=== PATIENT | female | born 1950 | race Caucasian/White ===

== ENCOUNTER 2020-12-13 17:01 | Observation (INO) | payer MEDICARE, OTHER ==
[~2020-12-13] VITALS: Ht 162.6 cm; Wt 70.9 kg
[2020-12-13] MEDS ORDERED: LISI20 PO (18:08)
[2020-12-13] MEDS ORDERED: DOXA2 PO (18:08)
[2020-12-13 18:55] LABS: BASOPHILS ABSOLUTE AUTO 0.02 K/mm3 (0.00-0.23); BASOPHILS PERCENT AUTO 0 % (0-2); EOSINOPHILS PERCENT AUTO 0 % (0-6); Hematocrit 41.7 % (33.0-51.0); Hemoglobin 14.2 g/dL (11.5-16.0); IMMATURE GRAN ABSOLUTE AUTO 0.03 K/mm3 (0.00-0.10); IMMATURE GRAN PERCENT AUTO 0 % (0-1); LYMPHOCYTES PERCENT AUTO 7 % (21-46); MONOCYTES ABSOLUTE AUTO 0.41 K/mm3 (0.16-1.47); MONOCYTES PERCENT AUTO 5 % (4-13); Mean Corpuscular HGB 31.4 pg (26.0-34.0); Mean Corpuscular HGB Conc 34.1 g/dL (31.5-36.5); Mean Corpuscular Volume 92 fL (80-100); Mean Platelet Volume 9.8 fL (9.1-12.4); NEUTROPHILS ABSOLUTE AUTO 8.02 K/mm3 (1.96-9.15); NEUTROPHILS PERCENT AUTO 88 % (41-73); Platelet Count 363 K/mm3 (150-400); RDW Coefficient Variation 12.6 % (11.7-14.2); RDW Standard Deviation 42.9 fL (35.1-46.3); Red Blood Cell Count 4.52 M/mm3 (3.80-5.20); White Blood Cell Count 9.08 K/mm3 (4.00-11.30)
[2020-12-13 19:14] LABS: Alanine Aminotransfer (ALT/SGP 18 U/L (12-78); Albumin, Blood 4.2 g/dL (3.4-5.0); Alk Phos 70 U/L (50-136); Anion Gap 8 mmol/L (6-16); Aspartate Aminotrans (AST/SGOT 23 U/L (12-37); Bilirubin, Total 0.4 mg/dL (0.1-1.0); Blood Urea Nitrogen 8 mg/dL (8-24); Bun/Creatinine Ratio 15.1 (12.0-20.0); CO2, Blood 27 mmol/L (21-32); Calcium, Blood 8.9 mg/dL (8.5-10.1); Chloride, Blood 93 mmol/L (98-108); Creatinine, Blood 0.53 mg/dL (0.40-1.00); Glomerular Filtration Rate >60 (60-); Glucose, Blood 120 mg/dL (70-99); Potassium, Blood 3.7 mmol/L (3.5-5.5); Sodium, Blood 128 mmol/L (136-145); Total Protein, Blood 8.2 g/dL (6.4-8.2)
[2020-12-13] MEDS ORDERED: ONDA4ODT MM (21:22)
--- NOTE | 2020-12-14 04:15 | NUR ---
SHIFT SUMMARY ASSUMED CARE OF PT AT 0200. PT IS A/OX4. PT IS VERY LETHARGIC AND COMPLAINS OF DIZZINESS. HEART SOUNDS SHOW A HEART MURMUR, TELE IS SINUS. LUNG SOUNDS ARE DIMINISHED T/O. PT ADM IS NONTENDER AND SOFT, TONES HYPERACTIVE. PT C/O DIARRHEA BUT HAS NOT HAD ANY THIS SHIFT. PT HAS BEEN SLEEPING SINCE COMING ONTO THE UNIT. PT REPORTED DRINKING EVERYDAY, BOUT 1-6 BEERS A DAY. PT ALSO REPORTS SMOKING 1/2 PACK A DAY. CALL LIGHT IN REACH, BED IN LOWEST POSTION.
--- NOTE | 2020-12-15 05:56 | NUR ---
SUMMARY: PT IS A/OX4 AND REMAINS VERY DROWSY BUT IS WAKEFUL AND SPECIFIES NEEDS. SHE'S 1PA TO BSC TO VOID AND HAD NO COMPLAINTS OF DIZZINESS TONIGHT. PT DENIED PAIN, NAUSEA AND ALL OTHER COMPLAINTS. NS INFUSES AT 100 ML/HR. STAFF WERE UNABLE TO COLLECT STOOL SPECIMEN D/T NO BM. ABDO IS SOFT AND NONTENDER W/(+)BT'S X4 QUADS. SHE REMAINS NSR AT 60'S BPM W/MURMUR AUSCULTATED. NO ACUTE CHANGES, VSS/AFEBRILE. WCTM AND REPORT TO DAY RN.
[2020-12-15 09:07] LABS: BASOPHILS ABSOLUTE AUTO 0.05 K/mm3 (0.00-0.23); BASOPHILS PERCENT AUTO 1 % (0-2); EOSINOPHILS ABSOLUTE AUTO 0.07 K/mm3 (0.00-0.68); EOSINOPHILS PERCENT AUTO 1 % (0-6); Hematocrit 40.4 % (33.0-51.0); Hemoglobin 13.5 g/dL (11.5-16.0); IMMATURE GRAN ABSOLUTE AUTO 0.01 K/mm3 (0.00-0.10); IMMATURE GRAN PERCENT AUTO 0 % (0-1); LYMPHOCYTES ABSOLUTE AUTO 1.16 K/mm3 (0.84-5.20); LYMPHOCYTES PERCENT AUTO 15 % (21-46); MONOCYTES ABSOLUTE AUTO 0.93 K/mm3 (0.16-1.47); MONOCYTES PERCENT AUTO 12 % (4-13); Mean Corpuscular HGB 31.6 pg (26.0-34.0); Mean Corpuscular HGB Conc 33.4 g/dL (31.5-36.5); Mean Corpuscular Volume 95 fL (80-100); Mean Platelet Volume 9.8 fL (9.1-12.4); NEUTROPHILS ABSOLUTE AUTO 5.48 K/mm3 (1.96-9.15); NEUTROPHILS PERCENT AUTO 71 % (41-73); Platelet Count 306 K/mm3 (150-400); RDW Coefficient Variation 12.7 % (11.7-14.2); RDW Standard Deviation 44.4 fL (35.1-46.3); Red Blood Cell Count 4.27 M/mm3 (3.80-5.20)
[2020-12-15 09:41] LABS: Alanine Aminotransfer (ALT/SGP 15 U/L (12-78); Albumin, Blood 3.4 g/dL (3.4-5.0); Albumin/Globulin Ratio 0.9 (0.8-1.8); Alk Phos 54 U/L (50-136); Anion Gap 2 mmol/L (6-16); Aspartate Aminotrans (AST/SGOT 19 U/L (12-37); Bilirubin, Total 0.5 mg/dL (0.1-1.0); Blood Urea Nitrogen 6 mg/dL (8-24); Bun/Creatinine Ratio 9.5 (12.0-20.0); CO2, Blood 30 mmol/L (21-32); Chloride, Blood 101 mmol/L (98-108); Creatinine, Blood 0.63 mg/dL (0.40-1.00); Globulin, Blood 3.6 g/dL (2.2-4.0); Glomerular Filtration Rate >60 (60-); Glucose, Blood 106 mg/dL (70-99); Magnesium, Blood 1.9 mg/dL (1.6-2.4); Potassium, Blood 3.3 mmol/L (3.5-5.5); Sodium, Blood 133 mmol/L (136-145)
--- NOTE | 2020-12-15 12:27 | NUR ---
CHEMICAL WASTE MANAGEMENT TECHNICIAN DOC REVIEW THIS RN ASSESSED THE PT. REVIEWED & AGREES WITH CHEMICAL WASTE MANAGEMENT TECHNICIAN'S DOCUMENTATION FOR THE SHIFT.
--- NOTE | 2020-12-15 12:59 | NUR ---
DISCHARGE PT DISCHARGED AFTER EDUCATION ON NEW MEDS AND FOLLOW UP INSTRUCTIONS. PT & SPOUSE DENY FUTHER NEED FOR INSTRUCTION AT THIS TIME. TELEPHONE ORDER FOR AMRIA L OBTAINED & CALLED TO NIRAJ IVANWIris. PT WHEELED OUT BY REMOTE SENSING TECHNOLOGIST AND DRIVEN HOME BY SPOUSE.
== END 2020-12-15 13:08 | disposition home or self-care (01) ==
LOC: ER 17:01 → MEDS 17:02
PROVIDERS: Emergency Medicine; Internal Medicine; ADMIT Internal Medicine
DX: R11.2 Nausea with vomiting, unspecified (principal); R42 Dizziness and giddiness; R55 Syncope and collapse; E87.1 Hypo-osmolality and hyponatremia; E86.1 Hypovolemia; R19.7 Diarrhea, unspecified; I10 Essential (primary) hypertension; F17.200 Nicotine dependence, unspecified, uncomplicated
CPT/HCPCS: 36415; 80053; 83690; 83735; 84145; 84443; 85025; 85651; 93005; 93010; 96360; 96372; 97162; 97165; 97530; 99285-25; A9270; G0378; J1650; J2405; J7030

== ENCOUNTER 2024-02-16 14:17 | Emergency (ER) | payer MEDICARE, OTHER ==
[~2024-02-16] VITALS: Ht 162.6 cm; Wt 72.6 kg
[~2024-02-16 14:17] MED LIST: DOXA2 PO; LISI20 PO; ONDA4ODT MM
[2024-02-16 14:38] LABS: BASOPHILS ABSOLUTE AUTO 0.04 K/mm3 (0.00-0.23); BASOPHILS PERCENT AUTO 1 % (0-2); EOSINOPHILS ABSOLUTE AUTO 0.17 K/mm3 (0.00-0.68); EOSINOPHILS PERCENT AUTO 2 % (0-6); Hematocrit 39.8 % (33.0-51.0); Hemoglobin 13.5 g/dL (11.5-16.0); IMMATURE GRAN ABSOLUTE AUTO 0.01 K/mm3 (0.00-0.10); IMMATURE GRAN PERCENT AUTO 0 % (0-1); LYMPHOCYTES ABSOLUTE AUTO 1.23 K/mm3 (0.84-5.20); LYMPHOCYTES PERCENT AUTO 17 % (21-46); MONOCYTES ABSOLUTE AUTO 1.05 K/mm3 (0.16-1.47); MONOCYTES PERCENT AUTO 15 % (4-13); Mean Corpuscular HGB 30.8 pg (26.0-34.0); Mean Corpuscular HGB Conc 33.9 g/dL (31.5-36.5); Mean Corpuscular Volume 91 fL (80-100); Mean Platelet Volume 9.8 fL (9.1-12.4); NEUTROPHILS ABSOLUTE AUTO 4.59 K/mm3 (1.96-9.15); NEUTROPHILS PERCENT AUTO 65 % (41-73); Platelet Count 316 K/mm3 (150-400); RDW Coefficient Variation 12.7 % (11.7-14.2); RDW Standard Deviation 42.1 fL (35.1-46.3); Red Blood Cell Count 4.38 M/mm3 (3.80-5.20); White Blood Cell Count 7.09 K/mm3 (4.00-11.30)
[2024-02-16 14:59] LABS: Albumin, Blood 3.6 g/dL (3.4-5.0); Bilirubin, Total 0.5 mg/dL (0.1-1.0); Bun/Creatinine Ratio 19.8 (12.0-20.0); Calcium, Blood 8.5 mg/dL (8.5-10.1); Creatinine, Blood 0.56 mg/dL (0.40-1.00); Globulin, Blood 3.7 g/dL (2.2-4.0); Potassium, Blood 4.3 mmol/L (3.5-5.5); Total Protein, Blood 7.3 g/dL (6.4-8.2)
[2024-02-16 17:05] VITALS: BP 171/100
== END 2024-02-16 17:06 | disposition home or self-care (01) ==
LOC: ER 14:17
PROVIDERS: Student in an Organized Health Care Education/Training Program
DX: G45.9 Transient cerebral ischemic attack, unspecified (principal); Z79.899 Other long term (current) drug therapy; I10 Essential (primary) hypertension; Z87.891 Personal history of nicotine dependence
CPT/HCPCS: 70450; 80053; 85025; 93005; 93010; 99284-25

== ENCOUNTER 2024-08-01 12:53 | Emergency (ER) | payer MEDICARE, OTHER ==
[~2024-08-01] VITALS: Ht 162.6 cm; Wt 72.6 kg
[2024-08-01 13:07] LABS: BASOPHILS ABSOLUTE AUTO 0.05 K/mm3 (0.00-0.23); BASOPHILS PERCENT AUTO 1 % (0-2); EOSINOPHILS ABSOLUTE AUTO 0.07 K/mm3 (0.00-0.68); EOSINOPHILS PERCENT AUTO 1 % (0-6); Hematocrit 39.3 % (33.0-51.0); Hemoglobin 13.6 g/dL (11.5-16.0); IMMATURE GRAN ABSOLUTE AUTO 0.03 K/mm3 (0.00-0.10); IMMATURE GRAN PERCENT AUTO 0 % (0-1); LYMPHOCYTES ABSOLUTE AUTO 1.18 K/mm3 (0.84-5.20); LYMPHOCYTES PERCENT AUTO 13 % (21-46); MONOCYTES ABSOLUTE AUTO 1.46 K/mm3 (0.16-1.47); MONOCYTES PERCENT AUTO 16 % (4-13); Mean Corpuscular HGB 31.2 pg (26.0-34.0); Mean Corpuscular HGB Conc 34.6 g/dL (31.5-36.5); Mean Corpuscular Volume 90 fL (80-100); Mean Platelet Volume 10.3 fL (9.1-12.4); NEUTROPHILS ABSOLUTE AUTO 6.18 K/mm3 (1.96-9.15); NEUTROPHILS PERCENT AUTO 69 % (41-73); Platelet Count 293 K/mm3 (150-400); RDW Coefficient Variation 13.2 % (11.7-14.2); RDW Standard Deviation 43.8 fL (35.1-46.3); Red Blood Cell Count 4.36 M/mm3 (3.80-5.20); White Blood Cell Count 8.97 K/mm3 (4.00-11.30)
[2024-08-01 13:46] LABS: Albumin, Blood 3.6 g/dL (3.4-5.0); Albumin/Globulin Ratio 0.9 (0.8-1.8); Bilirubin, Total 0.6 mg/dL (0.1-1.0); Calcium, Blood 9.3 mg/dL (8.5-10.1); Creatinine, Blood 0.67 mg/dL (0.40-1.00); Globulin, Blood 4.2 g/dL (2.2-4.0); Potassium, Blood 5.1 mmol/L (3.5-5.5); Total Protein, Blood 7.8 g/dL (6.4-8.2)
[2024-08-01] MEDS ORDERED: Cardura1 MG PO (15:55)
[2024-08-01 16:00] VITALS: BP 186/75
== END 2024-08-01 16:18 | disposition home or self-care (01) ==
LOC: ER 12:53
PROVIDERS: Emergency Medicine
DX: R40.4 Transient alteration of awareness (principal); R55 Syncope and collapse; I10 Essential (primary) hypertension; Z87.891 Personal history of nicotine dependence; Z86.73 Personal history of transient ischemic attack (TIA), and cerebral infarction without residual deficits
CPT/HCPCS: 70450; 71046; 80053; 82947; 83880; 84484; 85025; 93005; 93010; 99285-25

== ENCOUNTER 2024-10-02 07:42 | Emergency (ER) | payer MEDICARE, OTHER ==
[~2024-10-02] VITALS: Ht 162.6 cm; Wt 72.6 kg
[~2024-10-02 07:42] MED LIST changes: +Cardura1 MG PO
[2024-10-02] MEDS ORDERED: FentaNYL Citrate 50 MCG/ML 2 ML Injection IV ONE (07:50)
[2024-10-02] MEDS ORDERED: Ondansetron HCl 2 MG / ML 2ML Vial IV ONE (07:50)
[2024-10-02] MEDS ORDERED: DOC250 PO (09:50)
[2024-10-02] MEDS ORDERED: HYDR1TAB94 PO (09:50)
[2024-10-02] MEDS ORDERED: OxyCODONE 5 mg/Acetamin 325 mg TABLET PO ONE (09:55)
[2024-10-02 12:30] VITALS: BP 138/85
== END 2024-10-02 12:33 | disposition home or self-care (01) ==
LOC: ER 07:42
DX: S82.831A Other fracture of upper and lower end of right fibula, initial encounter for closed fracture (principal); S70.01XA Contusion of right hip, initial encounter; W06.XXXA Fall from bed, initial encounter; I10 Essential (primary) hypertension; Z79.899 Other long term (current) drug therapy; Z87.891 Personal history of nicotine dependence
CPT/HCPCS: 29515; 73502; 73610; 96374-59; 96375-59; 99284-25; A9270; J2405; J3010

== ENCOUNTER 2025-02-08 14:10 | Inpatient (IN) | payer MEDICARE, OTHER ==
[~2025-02-08] VITALS: Ht 162.6 cm; Wt 74.8 kg
[~2025-02-08 14:10] MED LIST changes: +DOC250 PO; +HYDR1TAB94 PO
[2025-02-08] MEDS ORDERED: NS 1,000 ML IV SCH ×2 (14:20→21:45)
[2025-02-08 14:27] LABS: BASOPHILS ABSOLUTE AUTO 0.04 K/mm3 (0.00-0.23); BASOPHILS PERCENT AUTO 0 % (0-2); EOSINOPHILS ABSOLUTE AUTO 0.06 K/mm3 (0.00-0.68); EOSINOPHILS PERCENT AUTO 0 % (0-6); Hematocrit 38.6 % (33.0-51.0); Hemoglobin 13.5 g/dL (11.5-16.0); IMMATURE GRAN ABSOLUTE AUTO 0.12 K/mm3 (0.00-0.10); IMMATURE GRAN PERCENT AUTO 1 % (0-1); LYMPHOCYTES ABSOLUTE AUTO 0.60 K/mm3 (0.84-5.20); LYMPHOCYTES PERCENT AUTO 3 % (21-46); MONOCYTES ABSOLUTE AUTO 2.53 K/mm3 (0.16-1.47); MONOCYTES PERCENT AUTO 14 % (4-13); Mean Corpuscular HGB Conc 35.0 g/dL (31.5-36.5); Mean Corpuscular Volume 85 fL (80-100); NEUTROPHILS ABSOLUTE AUTO 15.29 K/mm3 (1.96-9.15); NEUTROPHILS PERCENT AUTO 82 % (41-73); NRBC ABSOLUTE 0.00 K/mm3 (0.00-0.02); NRBC Auto 0.0 /100 WBC (0.0-0.2); Platelet Count 303 K/mm3 (150-400); RDW Coefficient Variation 13.1 % (11.7-14.2); RDW Standard Deviation 41.1 fL (35.1-46.3)
[2025-02-08 14:34] LABS: Source, Urine Fem Cath
[2025-02-08 14:37] LABS: Bilirubin, Urine Neg (Neg); Glucose Qualitative, Urine Neg (Neg); Ketones, Urine Neg (Neg); Leukocyte Esterase, Urine 3+ (Neg); Protein, Urine 2+ (Neg); Specific Gravity, Urine 1.010 (1.003-1.022); Urobilinogen, Urine NORM (Normal)
[2025-02-08 14:48] LABS: Alanine Aminotransfer (ALT/SGP 16.0 U/L (12-78); Albumin, Blood 3.1 g/dL (3.4-5.0); Albumin/Globulin Ratio 0.8 (0.8-1.8); Anion Gap 13.0 mmol/L (3-11); Aspartate Aminotrans (AST/SGOT 19.0 U/L (12-37); Bilirubin, Total 1.2 mg/dL (0.1-1.0); Blood Urea Nitrogen 6.0 mg/dL (8-24); CO2, Blood 24.0 mmol/L (21-32); Calcium, Blood 8.5 mg/dL (8.5-10.1); Chloride, Blood 87.0 mmol/L (98-108); Creatinine, Blood 0.6 mg/dL (0.40-1.00); Globulin, Blood 4.0 g/dL (2.2-4.0); Glucose, Blood 113.0 mg/dL (70-99); Potassium, Blood 3.5 mmol/L (3.5-5.5); Sodium, Blood 120.0 mmol/L (136-145); Total Protein, Blood 7.1 g/dL (6.4-8.2)
[2025-02-08 15:02] LABS: Color, Urine Pale Yellow (P-Yellow)
[2025-02-08] MEDS ORDERED: CefTRIAXone Sodium 2,000 MG in NS 100 ML IV ONE (15:25)
[2025-02-08] MEDS ORDERED: Ondansetron HCl 2 MG / ML 2ML Vial IV PRN (17:50)
[2025-02-08 20:29] VITALS: BP 149/87
[2025-02-09 01:16] LABS: Anion Gap 12.0 mmol/L (3-11); Blood Urea Nitrogen 7.0 mg/dL (8-24); CO2, Blood 23.0 mmol/L (21-32); Calcium, Blood 8.1 mg/dL (8.5-10.1); Chloride, Blood 96.0 mmol/L (98-108); Creatinine, Blood 0.6 mg/dL (0.40-1.00); Glucose, Blood 108.0 mg/dL (70-99); Potassium, Blood 3.5 mmol/L (3.5-5.5); Sodium, Blood 127.0 mmol/L (136-145)
--- NOTE | 2025-02-09 03:35 | NUR ---
SHIFT SUMM: PT WAS AN ADMIT THIS SHIFT FROM THE ER. PT HAS BEEN SLEEPING MOST OF THIS SHIFT. PT WAS GIVEN MELATONIN AND IBRUPROFEN FOR PAIN/SLEEP. PT IS INCONT/CONT AND A 1 PERSON W/FWW TO THE BSC. PT IS ON CONTINUOUS NS @ 75ML/HR. WITH A PATENT PIV TO THE LFA. PT ON RA. PT HAS CALL LIGHT IN REACH AND BED LOW AND LOCKED FOR SAFETY.
[2025-02-09 03:57] VITALS: BP 132/80
[2025-02-09 07:14] VITALS: BP 131/71
[2025-02-09] MEDS ORDERED: Enoxaparin 40 MG/0.4 ML SYR SC SCH (09:00)
[2025-02-09] MEDS ORDERED: CefTRIAXone Sodium 1,000 MG in NS 100 ML IV SCH (09:00)
[2025-02-09] MEDS ORDERED: Lactobacil 2-S.Thermo-Bifido 1 1 Cap PO SCH (12:00)
[2025-02-09] MEDS ORDERED: Polyethylene Glycol 3350 17 gm PO SCH (12:00)
[2025-02-09 14:58] VITALS: BP 138/79
--- NOTE | 2025-02-09 18:47 | NUR ---
NO ACUTE CHANGES, WAITING FOR CULUTRE RESULTS, IMPROVED/RESOLVED LEFT SIDE DEFICITS, WORKED WITH PT, NO SWALLOW DEFICITS, CALL LIGHT WITH IN REACH
[2025-02-09 20:14] VITALS: BP 178/86
[2025-02-09 20:18] VITALS: BP 182/81
[2025-02-09 23:14] VITALS: BP 123/65
[2025-02-10 03:23] VITALS: BP 183/77
[2025-02-10 05:50] LABS: Hematocrit 37.2 % (33.0-51.0); Hemoglobin 12.8 g/dL (11.5-16.0); Mean Corpuscular HGB Conc 34.4 g/dL (31.5-36.5); Mean Corpuscular Volume 86 fL (80-100); NRBC ABSOLUTE 0.00 K/mm3 (0.00-0.02); NRBC Auto 0.0 /100 WBC (0.0-0.2); Platelet Count 265 K/mm3 (150-400); RDW Coefficient Variation 13.3 % (11.7-14.2); RDW Standard Deviation 42.3 fL (35.1-46.3)
[2025-02-10 06:14] LABS: Anion Gap 10 mmol/L (3-11); Blood Urea Nitrogen 4 mg/dL (8-24); CHOL/HDL RATIO 3.6; CO2, Blood 26 mmol/L (21-32); Calcium, Blood 8.3 mg/dL (8.5-10.1); Chloride, Blood 97 mmol/L (98-108); Cholesterol 176 mg/dL (50-200); Creatinine, Blood 0.59 mg/dL (0.40-1.00); Glucose, Blood 95 mg/dL (70-99); HDL Cholesterol 49 mg/dL (>39); LDL/HDL RATIO 2.2; Low Density Lipoprotein Chol 107 mg/dL (0-110); Potassium, Blood 3.0 mmol/L (3.5-5.5); Sodium, Blood 130 mmol/L (136-145); Triglycerides 101 mg/dL (30-160); Very Low Density Lipoprot Chol 20 mg/dL (6-32)
[2025-02-10 06:25] VITALS: BP 141/88
--- NOTE | 2025-02-10 06:43 | NUR ---
SUMMARY ORIENTED. EMBRACING PILLOW WHOLE TIME FOR SPLINTING HER PAIN ON R FLANK THORAX. REQ FOR BATHROOM ASSISTANCE, SB ASSIST MANAGED WALKER FAIR. BP SUDDENLY ELEVATED AFTER AMBULATING, DID HAPPEN TWICE. CONTINUED IBUPROFEN AND ABLE TO SLEEP WELL. BP NORMALISED WHILE ON REST. NOT REQUESTING FOR PAIN MED BUT 01/30 WHEN ASKED.
[2025-02-10 07:18] VITALS: BP 160/78
[2025-02-10] MEDS ORDERED: AMOCLA875 PO (11:32)
[2025-02-10] MEDS ORDERED: ASPI81CH PO (11:32)
[2025-02-10] MEDS ORDERED: Acetaminophen325 M1 PO (11:32)
[2025-02-10] MEDS ORDERED: VISBIOME 112.51 EACH PO (11:33)
[2025-02-10] MEDS ORDERED: MELATONIN5 M1 PO (11:33)
[2025-02-10] MEDS ORDERED: MIRALAX17 GM PO (11:33)
--- NOTE | 2025-02-10 13:03 | NUR ---
DISCHARGE NOTE PT D/C HOME AT 1300. PT AND PT'S PROVIDED W/ VERBAL AND WRITTEN INSTRUCTIONS AND REPORTED UNDERSTANDING. PT A&OX4, VSS, AMB W/ ASSIST, TOLERATING PO, VOIDING, AND DENIED PAIN. BELONGINGS WERE RETURNED. PT ESCOURTED OUT VIA W/C BY PT'S .
== END 2025-02-10 13:00 | disposition home or self-care (01) | DRG 871 ==
LOC: ER 14:10 → MEDS 17:47 → ERHOLD 17:47 → MEDS 20:13
PROVIDERS: Emergency Medicine; Internal Medicine; Nurse Practitioner Acute Care; ADMIT Student in an Organized Health Care Education/Training Program
DX: A41.51 Sepsis due to Escherichia coli [E. coli] (principal); G92.8 Other toxic encephalopathy; G93.41 Metabolic encephalopathy; N39.0 Urinary tract infection, site not specified; E87.1 Hypo-osmolality and hyponatremia; R65.20 Severe sepsis without septic shock; E87.6 Hypokalemia; E78.5 Hyperlipidemia, unspecified; I10 Essential (primary) hypertension; Z66 Do not resuscitate; Z91.81 History of falling; Z86.73 Personal history of transient ischemic attack (TIA), and cerebral infarction without residual deficits; Z87.891 Personal history of nicotine dependence
CPT/HCPCS: 36415; 70450; 71045; 76770; 80048; 80053; 80061; 81001; 83930; 83935; 84295; 84300; 84443; 84484; 85025; 85027; 87077; 87086; 87186; 93005; 93010; 96361; 96365; 96366; 96372; 97116; 97161; 99285-25; A6590; A9270; G0378; J0696; J1650; J7030

== ENCOUNTER 2025-06-04 10:50 | Emergency (ER) | payer MEDICARE, OTHER ==
[~2025-06-04] VITALS: Ht 162.6 cm; Wt 72.1 kg
[~2025-06-04 10:50] MED LIST changes: +AMOCLA875 PO; +ASPI81CH PO; +Acetaminophen325 M1 PO; +MELATONIN5 M1 PO; +MIRALAX17 GM PO; +VISBIOME 112.51 EACH PO
[2025-06-04 11:14] LABS: BASOPHILS ABSOLUTE AUTO 0.06 K/mm3 (0.00-0.23); BASOPHILS PERCENT AUTO 1 % (0-2); EOSINOPHILS ABSOLUTE AUTO 0.06 K/mm3 (0.00-0.68); EOSINOPHILS PERCENT AUTO 1 % (0-6); Hematocrit 41.2 % (33.0-51.0); Hemoglobin 14.1 g/dL (11.5-16.0); IMMATURE GRAN ABSOLUTE AUTO 0.04 K/mm3 (0.00-0.10); IMMATURE GRAN PERCENT AUTO 0 % (0-1); LYMPHOCYTES ABSOLUTE AUTO 1.36 K/mm3 (0.84-5.20); LYMPHOCYTES PERCENT AUTO 12 % (21-46); MONOCYTES ABSOLUTE AUTO 1.39 K/mm3 (0.16-1.47); MONOCYTES PERCENT AUTO 13 % (4-13); Mean Corpuscular HGB Conc 34.2 g/dL (31.5-36.5); Mean Corpuscular Volume 90 fL (80-100); NEUTROPHILS ABSOLUTE AUTO 8.20 K/mm3 (1.96-9.15); NEUTROPHILS PERCENT AUTO 74 % (41-73); NRBC ABSOLUTE 0.00 K/mm3 (0.00-0.02); NRBC Auto 0.0 /100 WBC (0.0-0.2); Platelet Count 321 K/mm3 (150-400); RDW Coefficient Variation 13.6 % (11.7-14.2); RDW Standard Deviation 44.6 fL (35.1-46.3)
[2025-06-04 11:40] LABS: Prothrombin Time Results 11.0 Sec (9.7-11.5)
[2025-06-04 11:50] LABS: Alanine Aminotransfer (ALT/SGP 17 U/L (12-78); Albumin, Blood 3.4 g/dL (3.4-5.0); Albumin/Globulin Ratio 0.9 (0.8-1.8); Anion Gap 9 mmol/L (3-11); Aspartate Aminotrans (AST/SGOT 38 U/L (12-37); Bilirubin, Total 0.6 mg/dL (0.1-1.0); Blood Urea Nitrogen 9 mg/dL (8-24); CO2, Blood 26 mmol/L (21-32); Calcium, Blood 9.1 mg/dL (8.5-10.1); Chloride, Blood 96 mmol/L (98-108); Creatinine, Blood 0.76 mg/dL (0.40-1.00); Ethanol (Alcohol), Blood, Med <3 mg/dL; Globulin, Blood 3.9 g/dL (2.2-4.0); Glucose, Blood 124 mg/dL (70-99); Potassium, Blood 4.6 mmol/L (3.5-5.5); Sodium, Blood 126 mmol/L (136-145); Total Protein, Blood 7.3 g/dL (6.4-8.2)
[2025-06-04 12:19] LABS: Source, Urine Straight Cath
[2025-06-04 12:26] LABS: Bilirubin, Urine Neg (Neg); Color, Urine Yellow (P-Yellow); Glucose Qualitative, Urine Neg (Neg); Ketones, Urine Neg (Neg); Leukocyte Esterase, Urine 3+ (Neg); Protein, Urine 2+ (Neg); Specific Gravity, Urine 1.010 (1.003-1.022); Urobilinogen, Urine NORM (Normal)
[2025-06-04 12:40] LABS: White Blood Cells, Urine 25-50 /hpf (0-5)
[2025-06-04 13:12] LABS: U Amphetamine Screen Not Detected; U Barbiturate Screen Not Detected; U Benzodiazapine Screen Not Detected; U Buprenorphine Screen Not Detected; U Cannabinoids Screen Not Detected; U Cocaine Screen Not Detected; U Methadone Screen Not Detected; U Methamphetamine Screen Not Detected; U Opiates Screen Not Detected; U Oxycodone Screen Not Detected; U Phencyclidine Screen Not Detected
[2025-06-04] MEDS ORDERED: HydrALAZINE HCl 20 MG / ML 1ML Vial IV ONE (14:20)
[2025-06-04] MEDS ORDERED: Dexamethasone Sodium Phosphate 4 MG/ML 1ML Vial IV ONE (14:45)
[2025-06-04 16:00] VITALS: BP 139/78
== END 2025-06-04 16:18 | disposition short-term general hospital (02) ==
LOC: ER 10:50
PROVIDERS: Emergency Medicine
DX: I72.5 Aneurysm of other precerebral arteries (principal); I65.21 Occlusion and stenosis of right carotid artery; I10 Essential (primary) hypertension; Z86.73 Personal history of transient ischemic attack (TIA), and cerebral infarction without residual deficits; Z87.891 Personal history of nicotine dependence; Z79.82 Long term (current) use of aspirin; Z79.899 Other long term (current) drug therapy
CPT/HCPCS: 51701; 70450; 70496; 70498; 80053; 80320; 81001; 82947; 85025; 85610; 85730; 93005; 93010; 96374-59; 96375-59; 99285-25; J0360; J1100; Q9967